=== PATIENT | female | born 1965 | race Caucasian/White ===

== ENCOUNTER → 2018-10-19 | Outpatient (CLI) | payer BC ==
[~2018-10-19] MED LIST: HYDACE5 PO
== END | disposition home or self-care (01) ==
LOC: LAB 17:08 → LAB SHORT 17:08
DX: N39.0 Urinary tract infection, site not specified (principal)
CPT/HCPCS: 87086

== ENCOUNTER → 2019-03-01 | Outpatient (CLI) | payer BC | END | disposition home or self-care (01) | LOC: LAB 13:18 → LAB SHORT 13:18 | DX: N39.0 Urinary tract infection, site not specified (principal) | CPT/HCPCS: 87077; 87086; 87186 ==

== ENCOUNTER → 2019-06-07 | Outpatient (CLI) | payer BC | END | disposition home or self-care (01) | LOC: LAB 14:14 → LAB SHORT 14:14 | DX: R30.0 Dysuria (principal) | CPT/HCPCS: 87086 ==

== ENCOUNTER → 2022-04-17 | Outpatient (CLI) | payer BC | LOC: LAB 16:33 → LAB SHORT 16:33 | DX: R30.0 Dysuria (principal) | CPT/HCPCS: 87086; 87147 ==

== ENCOUNTER → 2023-02-03 | Outpatient (CLI) | payer BC | END | disposition home or self-care (01) | LOC: LAB 07:57 → LAB SHORT 07:57 | DX: D22.62 Melanocytic nevi of left upper limb, including shoulder (principal) | CPT/HCPCS: 88305 ==

== ENCOUNTER 2024-10-12 11:32 | Emergency (ER) | payer BC ==
[~2024-10-12] VITALS: Ht 162.6 cm; Wt 64.4 kg
[2024-10-12 15:28] VITALS: BP 149/91
[2024-10-12] MEDS ORDERED: Lidocaine 4% 1 Patch TOP ONE (17:05)
[2024-10-12] MEDS ORDERED: Ketorolac Tromethamine 15mg Vial IM ONE (17:05)
[2024-10-12] MEDS ORDERED: Percocet 5-3251 EACH PO (17:07)
[2024-10-12] MEDS ORDERED: ASPERFLEX1 EACH TOP (17:08)
== END 2024-10-12 17:26 | disposition home or self-care (01) ==
LOC: ER 11:32
DX: S22.41XA Multiple fractures of ribs, right side, initial encounter for closed fracture (principal); W11.XXXA Fall on and from ladder, initial encounter; Z79.899 Other long term (current) drug therapy
CPT/HCPCS: 71101; 96372; 99284-25; A9270; J1885